=== PATIENT | female | born 1980 | race African-American/Black ===

== ENCOUNTER 2018-02-20 07:32 | Emergency (ER) | payer MEDICAID ==
[~2018-02-20] VITALS: Ht 160 cm; Wt 82.0 kg
[2018-02-20 07:42] VITALS: BP 132/69
[2018-02-20] MEDS ORDERED: FENTANYL CITRATE/PF 50MCG/ML 2ML VIAL ONE (14:11)
[2018-02-20] MEDS ORDERED: MIDAZOLAM HCL 2 MG/2 ML VIAL ONE (14:12)
[2018-02-20] MEDS ORDERED: LIDOCAINE HCL/PF 1% 10 MG/ML 5ML VIAL ONE (14:12)
[2018-02-20] MEDS ORDERED: PROPOFOL 200MG/20ML VIAL IV ONE (14:12)
[2018-02-20] MEDS ORDERED: PHENYLEPHRINE HCL 10 MG/ML 1ML (IV VIAL) IV ONE (14:22)
[2018-02-20] MEDS ORDERED: ONDANSETRON HCL 4MG/2ML INJ ONE (14:46)
[2018-02-20] MEDS ORDERED: METOCLOPRAMIDE HCL 10MG/2ML VIAL ONE (14:46)
== END 2018-02-20 09:15 | disposition left against medical advice (07) ==
LOC: ER 08:53
DX: Z53.21 Procedure and treatment not carried out due to patient leaving prior to being seen by health care provider (principal)
CPT/HCPCS: J2250; J2370; J2405; J2765; J3010; J3490; J2704

== ENCOUNTER 2018-02-20 09:52 | Day surgery (SDC) | payer MEDICAID ==
[~2018-02-20] VITALS: Ht 167.6 cm; Wt 66.0 kg
[2018-02-20] MEDS ORDERED: SODIUM CHLORIDE 0.9% 1,000 ML IV ONE (11:16)
[2018-02-20 11:53] LABS: BASOPHILS % 0.5 % (0.0-2.0); EOSINOPHILS % 1.2 % (0.0-5.0); HEMATOCRIT. 36.5 % (36.0-48.0); HEMOGLOBIN. 12.4 g/dL (12.0-16.0); LYMPHOCYTES % 21.3 % (20.0-50.0); MEAN CORPUSCULAR HEMOGLOBIN 31.5 pg (28.0-32.0); MEAN CORPUSCULAR VOLUME 92.6 fL (81.0-99.0); MEAN PLATELET VOLUME 8.7 fl (7.4-10.4); MONOCYTES % 7.2 % (2.0-8.0); NEUTROPHILS % 69.8 % (40.0-76.0); PLATELET 232 x1000/uL (130-400); RED BLOOD CELL COUNT 3.95 mill/uL (4.2-5.4); RED CELL DISTRIBUTION WIDTH 12.9 % (11.6-14.6)
[2018-02-20 12:01] LABS: CHLORIDE 106 mEq/L (98-107)
[2018-02-20 12:13] LABS: T4 FREE 1.01 ng/dL (0.76-1.46)
[2018-02-20 12:27] LABS: B-HCG QUANTITATIVE 53963 mIU/mL (<3)
[2018-02-20 12:29] LABS: CLARITY URINE CLOUDY (CLEAR); COLOR URINE YELLOW (YELLOW); KETONES URINE NEGATIVE (NEGATIVE); LEUKOCYTE ESTERASE URINE TRACE (NEGATIVE); NITRITE URINE NEGATIVE (NEGATIVE); OCCULT BLOOD URINE 3+ (NEGATIVE); PROTEIN URINE NEGATIVE (NEGATIVE); SPECIFIC GRAVITY URINE 1.023 (1.005-1.030); UROBILINOGEN URINE 0.2 E.U./dL (0.2-1.0)
[2018-02-20 13:40] VITALS: BP 113/60
[2018-02-20] MEDS ORDERED: RHO(D) IMMUNE GLOBULIN 300 MCG/SYR IM ONE (15:15)
[2018-02-20] MEDS ORDERED: IBUPROFEN 600MG TABLET PO ONE (15:15)
== END 2018-02-20 18:15 | disposition home or self-care (01) ==
LOC: ER 09:52 → OR 11:24 → CANRESERV 21:11 → ENRESERV 21:11 → CANBEDREQ 02-21 04:34
PROVIDERS: ATTEND Obstetrics & Gynecology
DX: O01.9 Hydatidiform mole, unspecified (principal); Z98.890 Other specified postprocedural states; Z79.899 Other long term (current) drug therapy
CPT/HCPCS: 36415; 59870; 76801; 76817; 80053; 81003; 84439; 84443; 84702; 85025; 86850; 86900; 86901; 86920; J7030

== ENCOUNTER 2019-05-03 10:01 | Observation (INO) | payer MEDICAID ==
[~2019-05-03] VITALS: Ht 157.5 cm; Wt 96.6 kg
[2019-05-03] MEDS ORDERED: LACTATED RINGERS 1,000 ML IV SCH (12:45)
[2019-05-03] MEDS ORDERED: BETAMETHASONE ACET/BETAMET 30 MG/5 ML VIAL IM NR (12:45)
[2019-05-03] MEDS ORDERED: PREN1COM17 MT (13:22)
[2019-05-03] MEDS ORDERED: ASPI-864 MT (13:23)
== END 2019-05-03 14:20 | disposition home or self-care (01) ==
LOC: 8 EST LDRP 10:01
PROVIDERS: ADMIT Obstetrics & Gynecology; ATTEND Obstetrics & Gynecology
DX: O41.03X0 Oligohydramnios, third trimester, not applicable or unspecified (principal); Z3A.34 34 weeks gestation of pregnancy
CPT/HCPCS: 59025; 76805; 76810; 76815; 76818; 96372; 99281; G0378; J0702; 96360

== ENCOUNTER 2019-05-04 14:13 | Observation (INO) | payer MEDICAID ==
[~2019-05-04] VITALS: Ht 157.5 cm; Wt 96.6 kg
[~2019-05-04 14:13] MED LIST: ASPI-864 MT; PREN1COM17 MT
[2019-05-04] MEDS ORDERED: BETAMETHASONE ACET/BETAMET 30 MG/5 ML VIAL IM NR (14:30)
== END 2019-05-04 14:50 | disposition home or self-care (01) ==
LOC: L&D 14:13 → UNDOADMOB 14:13 → 8 EST LDRP 14:23
PROVIDERS: ADMIT Obstetrics & Gynecology; ATTEND Obstetrics & Gynecology
DX: O30.003 Twin pregnancy, unspecified number of placenta and unspecified number of amniotic sacs, third trimester (principal); Z3A.34 34 weeks gestation of pregnancy
CPT/HCPCS: 96372; 99281; G0378

== ENCOUNTER 2019-05-06 08:44 | Observation (INO) | payer MEDICAID ==
[~2019-05-06] VITALS: Ht 157.5 cm; Wt 96.2 kg
[2019-05-06] MEDS ORDERED: TERBUTALINE SULFATE 1MG/ML VIAL SUBCUT PRN (11:00)
[2019-05-06] MEDS ORDERED: DEXT 5%/LR + PITOCIN 20UNITS/L 1,000 ML IV SCH (11:02)
[2019-05-06] MEDS ORDERED: NALOXONE HCL 0.4 MG/ML 1ML VIAL IM PRN (11:15)
[2019-05-06] MEDS ORDERED: CARBOPROST TROMETHAMINE 250 MCG/ML AMPUL IM PRN (11:15)
[2019-05-06] MEDS ORDERED: METHYLERGONOVINE MALEATE 0.2 MG/ML IM PRN (11:15)
[2019-05-06] MEDS ORDERED: MISOPROSTOL 100MCG TABLET VG SCH (11:15)
[2019-05-06] MEDS ORDERED: LACTATED RINGERS 1,000 ML IV SCH (11:30)
[2019-05-06] MEDS ORDERED: FENTANYL CITRATE/PF 50MCG/ML 2ML VIAL ONE (12:11)
[2019-05-06] MEDS ORDERED: ONDANSETRON HCL 4MG/2ML INJ ONE (12:11)
[2019-05-06] MEDS ORDERED: PHENYLEPHRINE HCL 10 MG/ML 1ML (IV VIAL) IV ONE (12:11)
[2019-05-06] MEDS ORDERED: GLYCOPYRROLATE 0.2 MG/ML 2ML VIAL ONE (12:11)
[2019-05-06] MEDS ORDERED: EPHEDRINE SULFATE 50MG/ML VIAL ONE (12:11)
[2019-05-06] MEDS ORDERED: MORPHINE SULFATE/PF 1MG/ML 10ML AMP ONE (12:11)
[2019-05-06] MEDS ORDERED: OXYTOCIN 10 UNITS/ML 1ML ONE (12:11)
[2019-05-06 13:14] LABS: BASOPHILS % 0.2 % (0.0-2.0); EOSINOPHILS % 0.7 % (0.0-5.0); HEMATOCRIT. 37.1 % (36.0-48.0); HEMOGLOBIN. 12.7 g/dL (12.0-16.0); LYMPHOCYTES % 19.4 % (20.0-50.0); MEAN CORPUSCULAR HEMOGLOBIN 32.8 pg (28.0-32.0); MEAN CORPUSCULAR VOLUME 96.1 fL (81.0-99.0); MEAN PLATELET VOLUME 9.2 fl (7.4-10.4); MONOCYTES % 12.8 % (2.0-8.0); NEUTROPHILS % 66.9 % (40.0-76.0); PLATELET 163 x1000/uL (130-400); RED BLOOD CELL COUNT 3.86 mill/uL (4.2-5.4); RED CELL DISTRIBUTION WIDTH 13.8 % (11.6-14.6)
[2019-05-06 13:23] LABS: INR 0.9; PARTIAL THROMBOPLASTIN TIME 24.5 sec (23.4-31.0); PROTHROMBIN TIME 9.4 sec (9.6-11.0)
[2019-05-06 14:36] LABS: HEPATITIS B SURFACE ANTIGEN NEGATIVE
[2019-05-06] MEDS ORDERED: CEFAZOLIN SODIUM 1000MG/VIAL ONE (16:11)
[2019-05-06] MEDS ORDERED: CITRIC ACID/SODIUM CITRATE SOLN 30ML UDC PO NR (17:00)
[2019-05-06] MEDS ORDERED: SODIUM CHLORIDE 0.9% 10ML VIAL ONE (17:00)
== END 2019-05-06 17:35 | disposition home or self-care (01) ==
LOC: 8 EST LDRP 08:44
PROVIDERS: ADMIT Obstetrics & Gynecology; ATTEND Obstetrics & Gynecology
DX: O41.03X0 Oligohydramnios, third trimester, not applicable or unspecified (principal); Z3A.36 36 weeks gestation of pregnancy
CPT/HCPCS: 36415; 59025; 76815; 76818; 85025; 85610; 85730; 86592; 86703; 86762; 86850; 86900; 86901; 86920; 87340; G0378; J0690; J2274; J2370; J2405; J3010; J3490; 96360; 96361

== ENCOUNTER 2020-07-13 19:23 | Emergency (ER) | payer MEDICAID ==
[~2020-07-13] VITALS: Ht 154.9 cm; Wt 82.0 kg
[2020-07-13 23:47] VITALS: BP 112/76
== END 2020-07-13 23:54 | disposition home or self-care (01) ==
LOC: ER 19:23
DX: K64.4 Residual hemorrhoidal skin tags (principal); K62.5 Hemorrhage of anus and rectum; Z98.890 Other specified postprocedural states
CPT/HCPCS: 93005; 99283